=== PATIENT | female | born 1990 | race African-American/Black ===

== ENCOUNTER 2024-09-12 02:44 | Emergency (ER) | payer MEDICAID, SELFPAY ==
[2024-09-12 02:46] VITALS: BMI 24.0
[2024-09-12 02:59] VITALS: BP 159/94; PULSE 87; RESP 18; TEMP 37.1; O2SAT 100
--- NOTE | 2024-09-12 03:17 | EDNOTE_ITS ---
<Statement entered by Hilaria Hooker MD - 09/24/24 19:09> As co-signing physician, I was present and available for consult prn. I concur with the plan and care as documented by the midlevel provider. ED Skin Abcess FB-RME/HPI General Chief complaint: Skin/Abscess/Foreign Body Stated complaint: RASH Time Seen by Provider: 09/12/24 03:00 Source: patient, RN notes reviewed and old records reviewed Arrival date/time: 09/12/24 02:44 Mode of arrival: ambulatory Limitations: no limitations RME / HPI RME / HPI narrative: 34yof presents to ED for 2-day history of red and swollen areas to forehead. Denies preceding injury or exposure. Patient states affected areas are both tender and itchy. No fever, n/v or drainage reported. No medications or treatments since onset. Related Data Home Medications ?Medication ?Instructions ?Recorded ?Confirmed vitamins-iron fumarate 27 1 tab PO DAILY UD 1 11/02/22 mg iron-folic acid 0.8 mg tablet ( Vitamin) Previous Rx's ?Medication ?Instructions ?Recorded ibuprofen 600 mg tablet 600 mg PO Q6H PRN pain #30 t abs 11/03/22 amoxicillin 875 mg-potassium 1 tab PO BID 10 days #20 tabs 09/12/24 clavulanate 125 mg tablet dicloxacillin 500 mg capsule 500 mg PO Q6H 7 days #28 caps 09/12/24 famotidine 20 mg tablet (Pepcid) 20 mg PO BID 10 days #20 tabs 09/12/24 Allergies Allergy/AdvReac Type Severity Reaction Status Date / Time No Known Allergies Allergy Verified 09/12/24 16:37 Review of Systems Review of Systems Systems Reviewed: All systems reviewed, normal except as documented Constitutional Constitutional: Denies chills and Denies fever(s) Gastrointestinal Gastrointestinal: Denies nausea and Denies vomiting Integumentary/Breasts Skin/Breast: Reports erythema, Reports skin pain and Reports skin swelling Past Medical History Surgical History OTHER SURGICAL HX: denies pshx Social History SMOKING STATUS: Never smoker SUBSTANCE USE: does not use ALCOHOL: Never Past Medical History Comments PMH COMMENT: denies pmhx ED Exam General Limitations: Present no limitations General appearance: Present alert and in no apparent distress Head Head exam: Present atraumatic and normocephalic Eye Eye exam: Present normal appearance, PERRL and EOMI ENT ENT exam: Present normal oropharynx, mucous membranes moist, TM's normal bilaterally and other (left preauricular LAD) Neck Neck exam: Present normal inspection and full ROM; Absent tenderness Chest Chest inspection: Present normal inspection and symmetric chest wall rise Respiratory Respiratory exam: Present normal lung sounds bilaterally; Absent respiratory distress Cardiovascular Cardiovascular exam: Present regular rate and normal rhythm Extremities Exam Extremities exam: Present normal inspection and full ROM Neurological Exam Neurological exam: Present alert and oriented X3 Psychiatric Psychiatric exam: Present normal affect and normal mood Skin Skin exam: Present other (Multiple nickel sized areas of erythema, mild swelling to forehead; tender to touch. No fluctuance or drainage) Course Quality Measures none Vital Signs Vital signs: Vital Signs Temperature 98.8 F 09/12/24 02:59 Pulse Rate 87 09/12/24 02:59 Respiratory Rate 18 09/12/24 02:59 Blood Pressure 159/94 H 09/12/24 02:59 Pulse Oximetry (%) 100 09/12/24 02:59 Oxygen Delivery Method Room Air 09/12/24 02:59 Skin / Abscess / Foreign Body MDM Narrative MDM Narrative:: 34yof presents to ED for 2-day history of red and swollen areas to forehead. Denies preceding injury or exposure. Patient states affected areas are both tender and itchy. No fever, n/v or drainage reported. No medications or treatments since onset. Will treat for mild facial cellultiis. No evidence of abscess at this time. Patient is well-appearing, afebrile, vitals are stable. Encouraged warm compresses. Stable for dc, RTED precautions given. Patient data External records reviewed:: [facility] previous records (11/02/22 admit for labor and delivery) Clinical information provided by:: patient Social determinants that could affect healthcare access:: none Patient has the following chronic illnesses:: none How is presenting disease/condition affected by chronic disease/condition?: no chronic disease Evaluation data The following diagnostics were reviewed and interpreted by me:: other (specify) (none) Lab and/or radiology exams considered but not ordered:: none Interpretation Summary: na Medications / Prescriptions Medications or Prescriptions considered but not ordered:: none Medication administrations:: none Consultations Consultation(s) initiated? (list below): No Diagnosis Skin/Abscess Differential Diagnosis: abscess of skin or subcutaneous tissue, viral exanthem, urticaria, cellulitis, insect bites, impetigo and contact dermatitis Most likely diagnosis given after review of the tests above:: facial cellulitis Admission Indicated Admission indicated?: not indicated Admission Request Was there a request for admission?: No Disposition Plan Disposition Plan: Discharge Discharge Attestation Discharge Attestation: The patient and all family members were given an opportunity to ask questions and understood the discharge instructions. Discharge instructions specifically effects, indications for sooner follow up or return to the emergency department, and the expected course of current diagnosis. Patient condition: Stable Discharge Plan Plan Patient Disposition: HOME (Self Care) Patient condition on transfer: Stable Prescriptions/Referrals Prescriptions/Med Rec: New dicloxacillin 500 mg capsule 500 mg PO Q6H 7 Days Qty: 28 0RF No Action Vitamin 27 mg iron- 0.8 mg Tablet 1 tab PO DAILY UD ibuprofen 600 mg tablet 600 mg PO Q6H PRN (Reason: pain) Qty: 30 0RF amoxicillin-pot clavulanate 875-125 mg tablet 1 tab PO BID 10 Days Qty: 20 0RF famotidine [Pepcid] 20 mg tablet 20 mg PO BID 10 Days Qty: 20 0RF Problem List Clinical Impression: Facial cellulitis Patient/Caregiver Discharge Instructions Education Materials: ED Cellulitis, Facial Print Language: Vietnamese Stand Alone Forms: Jessica Award Info., Patient Portal Info Letter PA/IRONWORKER MACHINE OPERATOR Supervising Physician PA/IRONWORKER MACHINE OPERATOR Supervising Physician: Nhung
== END 2024-09-12 04:03 | disposition home or self-care (01) ==
LOC: SERX 03:26
PROVIDERS: Emergency Provider Emergency Medicine; PCP Family Medicine
DX: L03.211 Cellulitis of face (principal)
CPT/HCPCS: 99281

== ENCOUNTER 2024-09-12 16:33 | Emergency (ER) | payer MEDICAID, SELFPAY ==
[2024-09-12 17:06] VITALS: BP 139/82; PULSE 82; RESP 16; TEMP 37.3; O2SAT 100; BMI 25.4
--- NOTE | 2024-09-12 17:24 | PD.EDRME ---
Rapid Medical Screening Exam RME Arrival date/time: 09/12/24 16:33 This is a case of 34-year-old female who came in in the emergency room wanted to change his antibiotic patient was seen here this morning and treated with facial cellulitis patient was discharged with dicloxacillin patient states that he is very sensitive to antibiotic and wanted to change the antibiotic Chief Complaint: General Adult/Misc Complain Time Seen by Provider: 09/12/24 17:23 Vital signs: Vital Signs Temperature 99.1 F 09/12/24 17:06 Pulse Rate 82 09/12/24 17:06 Respiratory Rate 16 09/12/24 17:06 Blood Pressure 139/82 H 09/12/24 17:06 Pulse Oximetry (%) 100 09/12/24 17:06 Oxygen Delivery Method Room Air 09/12/24 17:06
--- NOTE | 2024-09-12 17:42 | EDNOTE_ITS ---
ED Skin Abcess FB-RME/HPI General Chief complaint: General Adult/Misc Complain Stated complaint: LUMPS ON FACE AND HEAD WAS SEEN EARLIER TODAY Time Seen by Provider: 09/12/24 17:23 Arrival date/time: 09/12/24 16:33 This is a case of 34-year-old female who came in in the emergency room wanted to change his antibiotic patient was seen here this morning and treated with facial cellulitis patient was discharged with dicloxacillin patient states that he is very sensitive to antibiotic and wanted to change the antibiotic patient states that the medication makes her GERD worse Limitations: no limitations RME / HPI RME / HPI narrative: 09/12/24 16:33 This is a case of 34-year-old female who came in in the emergency room wanted to change his antibiotic patient was seen here this morning and treated with facial cellulitis patient was discharged with dicloxacillin patient states that he is very sensitive to antibiotic and wanted to change the antibiotic Related Data Home Medications ?Medication ?Instructions ?Recorded ?Confirmed vitamins-iron fumarate 27 1 tab PO DAILY UD 1 11/02/22 mg iron-folic acid 0.8 mg tablet ( Vitamin) Previous Rx's ?Medication ?Instructions ?Recorded ibuprofen 600 mg tablet 600 mg PO Q6H PRN pain #30 t abs 11/03/22 amoxicillin 875 mg-potassium 1 tab PO BID 10 days #20 tabs 09/12/24 clavulanate 125 mg tablet dicloxacillin 500 mg capsule 500 mg PO Q6H 7 days #28 caps 09/12/24 famotidine 20 mg tablet (Pepcid) 20 mg PO BID 10 days #20 tabs 09/12/24 Allergies Allergy/AdvReac Type Severity Reaction Status Date / Time No Known Allergies Allergy Verified 09/12/24 16:37 Review of Systems Review of Systems Systems Reviewed: All systems reviewed, normal except as documented Constitutional Constitutional: Reports system reviewed and no additional complaints, except as documented Cardiovascular Cardiovascular: Reports system reviewed and no additional complaints, except as documented and Reports as per HPI Respiratory Respiratory: Reports system reviewed and no additional complaints, except as documented and Reports as per HPI Gastrointestinal Gastrointestinal: Reports system reviewed and no additional complaints, except as documented and Reports as per HPI Musculoskeletal Musculoskeletal: Reports system reviewed and no additional complaints, except as documented and Reports as per HPI Integumentary/Breasts Skin/Breast: Reports other (multiple lump face scalp) Neurologic Neurologic: Reports system reviewed and no additional complaints, except as documented and Reports as per HPI Past Medical History Past Medical History NEUROLOGIC: Positive Neurological Disorders (Per patient disorientation when and dehydrated) and Migraine (During ); Negative Seizures CARDIAC: Negative Cardiac Disorders or Congestive Heart Failure RESPIRATORY: Negative Chronic Obstructive Pulmonary Disease (COPD) GASTROINTESTINAL: Positive Gastrointestinal Disorders (Per patient eyesight gets blurry when ); Negative Hepatitis or Colorectal Cancer GENITOURINARY: Negative Genitourinary Disorders, Renal Disease or Prostate Cancer REPRODUCTIVE: Positive Fibroids and Previous Pregnancies (); Negative Breast Cancer or Testicular Cancer MUSCULOSKELETAL: Negative Musculoskeletal Disorders or Bone Cancer ENDOCRINE: Negative Endocrine Disorders, Diabetes Mellitus Type 1 or Diabetes Mellitus Type 2 HEMATOLOGIC: Positive Anemia; Negative Blood Disorders PSYCHO/SOCIAL: Negative Depression or Depression OTHER HISTORY: Negative Hospitalization, Autoimmune Disease, Down Syndrome, Developmental Delay, Shingles, Falls, Blood Transfusions (NA), Blood Transfusion Reaction (NA), Anesthesia Reactions (NA), Organ Transplant, Chemotherapy, Radiation Therapy, Hyperbaric Therapy, MRSA, VRSA, Vancomycin-Resistant Enterococci, Human Immunodeficiency Virus (HIV), Chicken Pox, Measles, Mumps, Rubella ([place]ian Measles), Pertussis, Clostridium Difficile, Breast Cancer, Cervical Cancer, Colorectal Cancer, Lung Cancer, Ovarian Cancer, Prostate Cancer or Testicular Cancer Family History FAMILY HISTORY: Positive Family Cardiac Disorders; Negative Family Psychiatric Problems, Family Respiratory Disorders, Family Gastrointestinal Problems, Family Cancer, Family Surgery or Family Anesthesia Reaction Surgical History SURGICAL: Positive Oral Surgery ([facility] Teeth Removal); Negative Section or Organ Transplant Social History SMOKING STATUS: Never smoker SUBSTANCE USE: does not use 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 Exam General Limitations: Present no limitations General appearance: Present alert and in no apparent distress Head Head exam: Present atraumatic Eye Eye exam: Present normal appearance, PERRL and EOMI ENT ENT exam: Present normal exam, normal oropharynx and mucous membranes moist Neck Neck exam: Present normal inspection, full ROM and trachea midline Chest Chest inspection: Present normal inspection and symmetric chest wall rise Respiratory Respiratory exam: Present normal lung sounds bilaterally Cardiovascular Cardiovascular exam: Present regular rate, normal rhythm and normal heart sounds Abdominal Exam Abdominal exam: Present soft and normal bowel sounds Extremities Exam Extremities exam: Present normal inspection and full ROM Back Exam Back exam: Present normal inspection and full ROM Neurological Exam Neurological exam: Present alert, oriented X3 and CN II-XII intact Psychiatric Psychiatric exam: Present normal affect and normal mood Skin Skin exam: Present warm, dry, intact, normal color and other (Noted multiple lump on the forehead face and scalp tender to touch mild redness suggestive of cellulitis no abscess no discharge) Course Quality Measures none Orders Category Date Time Status Clindamycin Vial [Cleocin vial] Med 09/12/24 17:38 Discontinued 600 mg IM X1 ONE Vital Signs Vital signs: Vital Signs Temperature 99.1 F 09/12/24 17:06 Pulse Rate 82 09/12/24 17:06 Respiratory Rate 16 09/12/24 17:06 Blood Pressure 139/82 H 09/12/24 17:06 Pulse Oximetry (%) 100 09/12/24 17:06 Oxygen Delivery Method Room Air 09/12/24 17:06 Oxygen saturation 100% on room air Skin / Abscess / Foreign Body MDM Narrative MDM Narrative:: This is a case of 34-year-old female who came in in the emergency room wanted to change his antibiotic patient was seen here this morning and treated with facial cellulitis patient was discharged with dicloxacillin patient states that he is very sensitive to antibiotic and wanted to change the antibiotic patient states that the medication makes her GERD worse physical examination noted patient have multiple lumps on the face forehead and scalp suggestive of cellulitis no abscess patient due to GI problem I decided to give clindamycin IM and changed the dicyclomine to Augmentin and prescribe also with Pepcid patient will follow- up with PCP in 2 days for reevaluation and return to the emergency room in 2 days for reevaluation of facial cellulitis for any worsening symptoms she is well-informed to return in the emergency room immediately or call 911 Patient was discharged with comfortable condition walking with stable gait. Patient verbalized no further complains explained diagnosis and answered patient question. Patient is comfortable with the proposed management plan including the need to follow up with his/her primary care physician and any specialist if applicable Discussed patient for any urgent condition or worsening sx, He/She needed to go to emergency room immediately or call 911. Patient acknowledge the responsibility to follow up as instructed and to monitor her/his symptoms. For any persistence of the symptoms for more than 3-5 days return precaution advised. Discussed the result of the test and was given printed discharge instruction Patient data External records reviewed:: [facility] previous records Clinical information provided by:: patient Social determinants that could affect healthcare access:: none Patient has the following chronic illnesses:: None How is presenting disease/condition affected by chronic disease/condition?: no chronic disease Evaluation data The following diagnostics were reviewed and interpreted by me:: other (specify) (None) Lab and/or radiology exams considered but not ordered:: None Interpretation Summary: None Medications / Prescriptions Medications or Prescriptions considered but not ordered:: Given Medication administrations:: Medication Administration History Discontinued Medications Clindamycin Phosphate (Clindamycin Phos Inj 150 Mg/Ml Vial 6 Ml) 600 mg IM X1 ONE Stop: 09/12/24 17:39 Given Consultations Consultation(s) initiated? (list below): No Diagnosis Skin/Abscess Differential Diagnosis: abscess of skin or subcutaneous tissue and other (Cellulitis) Most likely diagnosis given after review of the tests above:: Facial cellulitis Admission Indicated Admission indicated?: not indicated Explain why admission is indicated or not indicated:: Not indicated Admission Request Was there a request for admission?: No Admission Attestation Admission request attestation: Not indicated Disposition Plan Disposition Plan: Discharge Discharge Attestation Discharge Attestation: The patient and all family members were given an opportunity to ask questions and understood the discharge instructions. Discharge instructions specifically effects, indications for sooner follow up or return to the emergency department, and the expected course of current diagnosis. Patient condition: Stable Discharge Plan Plan Patient Disposition: HOME (Self Care) Prescriptions/Referrals Prescriptions/Med Rec: New amoxicillin-pot clavulanate 875-125 mg tablet 1 tab PO BID 10 Days Qty: 20 0RF famotidine [Pepcid] 20 mg tablet 20 mg PO BID 10 Days Qty: 20 0RF No Action Vitamin 27 mg iron- 0.8 mg Tablet 1 tab PO DAILY UD dicloxacillin 500 mg capsule 500 mg PO Q6H 7 Days Qty: 28 0RF ibuprofen 600 mg tablet 600 mg PO Q6H PRN (Reason: pain) Qty: 30 0RF Problem List Clinical Impression: Cellulitis of face Patient/Caregiver Discharge Instructions Education Materials: Discharge Instructions for Cellulitis, ED Cellulitis, Facial Additional Instructions: Follow-up with your primary care physician in 2 days for reevaluation and for any worsening symptoms or any emergent concern return to the emergency room immediately or call 911 return to the emergency room in 2 days for reevaluation of your facial cellulitis take your medication as directed increase water intake keep hydrated take your medication with food Print Language: Angolan Stand Alone Forms: Jessica Award Info., Patient Portal Info Letter PA/ALUMINUM CONTAINER TESTER Supervising Physician PA/ALUMINUM CONTAINER TESTER Supervising Physician: dr [email or web address]
[2024-09-12] MEDS: CLINDAMYCIN PHOS INJ 150 MG/ML VIAL 6 ML 600 MG IM (18:16)
== END 2024-09-12 18:29 | disposition home or self-care (01) ==
PROVIDERS: Emergency Provider Emergency Medicine; PCP Family Medicine
DX: L03.211 Cellulitis of face (principal); K21.9 Gastro-esophageal reflux disease without esophagitis
CPT/HCPCS: 96372; 99283; J0736